=== PATIENT | female | born 1950 | race Caucasian/White ===

== ENCOUNTER 2018-02-05 13:29 | Outpatient (CLI) | payer BC ==
--- NOTE | 2018-02-05 14:09 | RAD ---
LEFT FOOT THREE VIEWS: History: Left foot pain. FINDINGS: Tarsals appear unremarkable. Metatarsals and phalanges unremarkable. MTP and IP joints unremarkable. IMPRESSION: Unremarkable left foot. POS: [facility]
== END 2018-02-05 13:30 | disposition home or self-care (01) ==
LOC: BICRAD 13:29
PROVIDERS: ATTEND Family Medicine
DX: M79.672 Pain in left foot (principal)

== ENCOUNTER 2019-02-05 13:14 | Outpatient (CLI) | payer MEDICARE, BC ==
--- NOTE | 2019-02-05 14:04 | RAD ---
EXAM: 3 views of the left foot HISTORY: Foot pain after hitting 11 days ago on a bed frame COMPARISON: 02/05/2018 FINDINGS: 3 views of the left foot shows no evidence of acute fracture or dislocation. No soft tissue swelling is seen. No degenerative changes are present. IMPRESSION: No evidence of acute osseous abnormality.
== END 2019-02-05 13:15 | disposition home or self-care (01) ==
LOC: BICRAD 13:14
PROVIDERS: ATTEND Family Medicine
DX: M79.672 Pain in left foot (principal)

== ENCOUNTER 2019-05-25 22:43 | Observation (INO) | payer MEDICARE, BC ==
[2019-05-26] MEDS ORDERED: Ondansetron PF 4 MG/2 ML Vial IVP PRN (01:10)
[2019-05-26] MEDS ORDERED: HYDROcodone/Acetaminophen 5/325 mg Tablet PO PRN ×2 (01:10)
[2019-05-26] MEDS ORDERED: Acetaminophen 325 MG TAB PO PRN (01:10)
[2019-05-26] MEDS ORDERED: Ondansetron ODT 4 MG TAB SL PRN (01:10)
[2019-05-26] MEDS ORDERED: Aspirin 325 MG TAB PO SCH (01:15)
[2019-05-26] MEDS ORDERED: Nitroglycerin 2% Ointment 1 INCH/1 GM Packet TOP SCH (01:15)
[2019-05-26] MEDS ORDERED: Nitroglycerin 0.4 MG TAB (25 Tab Bottle) PO PRN (01:23)
--- NOTE | 2019-05-26 01:23 | PDOC.FPRHP ---
- History of Present Illness Chief Complaint: chest pain History of Present Illness: Patient is a 69F with PMHx of HTN, HLD, Asthma that presents with chest pain. Patient reports that the chest pain has been intermittent throughout the last 3 days, and it occurs at rest. She states that the pain is sharp in character and radiates up to her jaw. She also endorses some nausea but denies vomiting and diarrhea. She denies and SOB. She has no SD hx. Patient has had a cardiac workup in the past: Dr. Ruiz is her fur pointer She reportedly had an abnormal stress test 1.5-2 years ago and then had a cardiac cath that showed stenosis but did not require any stenting. She also reportedly had carotid dopplers 10mo ago that she reports came back without abnormalities PCP: Vladislav ED Course: 1in nitro, 1 PO nitro, 324mg asa, 975mg tylenol, 25meq KCl - Allergies/Adverse Reactions Allergies Allergy/AdvReac Type Severity Reaction Status Date / Time No Known Allergies Allergy Verified 05/26/19 01:46 - Home Medications Medication Instructions Recorded Confirmed Type Ezetimibe 10 mg PO DAILY 05/26/19 05/26/19 History Fluticasone Propionate [Flonase 1 spray EA NARE BID 05/26/19 05/26/19 History Nasal [place]] Icosapent Ethyl [Vascepa] 2 cap PO BID-WM 05/26/19 05/26/19 History Lifitegrast [Xiidra] 1 drop EA EYE BID 05/26/19 05/26/19 History Valsartan/Hydrochlorothiazide 1 tab PO DAILY 05/26/19 05/26/19 History [Valsartan-Hctz 160-12.5 mg Tab] - History PMHx: HTN, HLD, Asthma PSHx: cholecystectomy, tubal ligation, tonsillectomy FHx: father had CHF, no SD hx Social: nonsmoker, no etoh use, no drug use - Review of Systems General: denies: fever/chills, weight/appetite/sleep changes Eyes: denies: eye pain, vision changes ENT: denies: nasal congestion, rhinorrhea Respiratory: denies: cough, shortness of breath Cardiovascular: reports: chest pain, edema Gastrointestinal: reports: nausea. denies: vomiting, diarrhea Genitourinary: denies: incontinence, dysuria Skin: denies: rashes, jaundice Musculoskeletal: denies: pain, stiffness Neurological: denies: numbness, syncope Psychological: denies: anxiety, depression - Vital signs BP: [136/67] HR: [78] RR: [17] Tmax: [97.8F] Pox: [98]% on [RA] Wt: [79.243kg ] - Physical Exam Constitutional: NAD, awake, alert and oriented, well developed HEENT: normocephalic and atraumatic, EOMI, MMM Neck: supple, FROM Chest: no-tender to palpation, no lesions Heart: RRR, normal S1/S2, other (chest somewhat ttp though does not mimick pain completely) Lungs: CTAB, no respiratory distress Abdomen: soft, non-tender Musculoskeletal: normal structure, normal tone, ROM grossly normal Neurological: no focal deficit, normal sensation Skin: no rash/lesions, good turgor Heme/Lymphatic: no unusual bruising or bleeding, no purpura Psychiatric: normal mood and affect, good judgment and insight FMR H&P: Results - Labs Result Diagrams: 05/26/19 02:33 05/26/19 02:33 - EKG Interpretation EKG: NSR, no ST segment elevation/depression FMR H&P: A/P - Problem List (1) Unstable angina Current Visit: Yes Status: Acute (2) HTN (hypertension) Current Visit: Yes Status: Acute Code(s): I10 - ESSENTIAL (PRIMARY) HYPERTENSION (3) HLD (hyperlipidemia) Current Visit: Yes Status: Acute Code(s): E78.5 - HYPERLIPIDEMIA, UNSPECIFIED (4) Asthma Current Visit: Yes Status: Acute Code(s): J45.909 - UNSPECIFIED ASTHMA, UNCOMPLICATED - Plan Patient is a 69F with PMHx of HTN, HLD, Asthma that is admitted for unstable angina #Unstable Angina -Patient had chest pain intermittently over last 3 days while at rest, concerning for UA -pain alleviated with nitro -EKG: no ST changes -initial trop neg, will trend -hx of abnormal stress -cath 1.5-2 yrs ago not requiring stents at that time -monitor over telemetry overnight -nitrostat prn for cp -NPO at midnight -FLP, TSH, A1C in am for risk stratification -cards consult in am, possible stress vs cath #HTN -continue home meds #HLD -continue home meds #Asthma -continue home meds DVT ppx: SCDs Diet: NPO Dispo: obs for cardiac workup; possible stress vs cath in am pending cards recs Code: Full PCP: Vladislav TROTTER H&P: Upper Level - Pertinent history 69 yo F here with complaint of L sided CP with associated nausea that radiates to her jaw. She has a hx significant for HTN and a previous abnormal stress. She was cathed about 18 months ago where a stenosis was identified, but not stented. Pain started about 3 days ago and has been intermittent. It is not associated with activity. PMHx HTN HLD CAD Surgical Hx Cholecystectomy Tubal ligation Social Hx No tobacco, etoh or drugs - Pertinent findings See internal medicine nurse practitioner note for full ROS, PE, vitals, and labs ROS General Denies chills and fever HEENT denies sore throat or ear pain CV Complains of CP. Denies diaphoresis or palpitations Resp Denies SOB or cough GI Complains of nausea. Denies abdominal pain denies dysuria and frequency Neuro denies weakness or numbness. PE General A&O x4 HEENT NCAT CV RRR, no murmur Resp CTA Abd soft, no distension Neuro no focal deficits Extremities no swelling, palpable cords, homans negative - Plan Date/Time: 05/26/19 0123 IArun DO, have evaluated this patient and agree with findings/plan as outlined by internal medicine nurse practitioner resident. Pertinent changes/additions are listed here. 1.Unstable angina -Admit to tele obs -Trend trop -Given hx of abnormal stress, will consult cardiology as she may need a repeat cath -Order lipid with am labs to risk stratify for need for statin 2.HTN -Restart home meds Diet NPO at midnight Code Full PPx SCD Dispo: pt is in good condition. Likely length of stay is 1-2 days
[2019-05-26 01:40] VITALS: BMI 33.0
[2019-05-26] MEDS ORDERED: Calcium Carbonate 500 MG ChewTAB PO PRN (02:04)
[2019-05-26 03:23] LABS: Anion Gap 12 mmol/L (10-20); BUN (Urea Nitrogen) 18 mg/dL (9.8-20.1); Calc. Creatinine Clearance 86 mL/min (70-130); Calcium 8.8 mg/dL (7.8-10.44); Carbon Dioxide 25 mmol/L (23-31); Cardiac Risk 3.7 (Less than 4.5); Chloride 105 mmol/L (98-107); Cholesterol 205 mg/dl (< 200 Desired); Estimated GFR-MDRD 75; Glucose 109 mg/dL (80-115); HDL Cholesterol 55 mg/dL (>60 Neg Risk); LDL Cholesterol, Calculated 133 mg/dL; Potassium 3.8 mmol/L (3.5-5.1); Sodium 138 mmol/L (136-145); Triglycerides 84 mg/dL (Less than 150); Troponin I Less than 0.010 ng/mL (< 0.028)
[2019-05-26 03:28] LABS: #Basophils 0.1 thou/uL (0.0-0.2); #Eosinphils 0.2 thou/uL (0.0-0.7); #Lymphocytes 2.1 thou/uL (1.20-3.40); #Monocytes 0.5 thou/uL (0.11-0.59); #Neutrophils 4.2 thou/uL (1.40-6.50); %Basophils 0.9 % (0.0-1.0); %Eosinophils 2.2 % (0.0-10.0); %Lymphocytes 29.5 % (21.0-51.0); %Monocytes 6.9 % (0.0-10.0); %Neutrophils 60.5 % (42.0-75.0); Hemoglobin 12.9 g/dL (12.0-16.0); Mean Corpuscular HGB CONC 32.9 g/dL (32.0-36.0); Mean Corpuscular Hemoglobin 31.5 pg (27.0-31.0); Mean Corpuscular Volume 95.8 fL (78.0-98.0); Mean Platelet Volume 8.1 fL (7.4-10.4); Platelet Count 213 thou/uL (130-400); RBC Distribution Width 11.8 % (11.5-14.5); Red Blood Cell (RBC) Count 4.08 mill/uL (4.20-5.40); White Blood Cell (WBC) Count 6.9 thou/uL (4.8-10.8)
[2019-05-26 03:42] LABS: Hemoglobin A1c 5.5 % (4.0-6.0)
[2019-05-26] MEDS ORDERED: ICOSAPENT ETHYL PO SCH (08:00)
[2019-05-26] MEDS ORDERED: Aspirin 325 mg Enteric Coated Tablet PO SCH (09:00)
[2019-05-26] MEDS ORDERED: Fluticasone Propionate Nasal Spray 16 gm Bottle NASAL SCH (09:00)
[2019-05-26] MEDS ORDERED: Valsartan 80 MG TAB PO SCH (09:00)
[2019-05-26] MEDS ORDERED: Ezetimibe 10 MG TAB PO SCH (09:00)
[2019-05-26] MEDS ORDERED: Hydrochlorothiazide 25 MG TAB PO SCH (09:00)
[2019-05-26] MEDS ORDERED: Regadenoson 0.4 MG/5 ML SYRINGE ONE (09:08)
[2019-05-26 11:28] VITALS: TEMP 97.6
[2019-05-26 14:37] VITALS: BP 119/59
--- NOTE | 2019-05-26 15:49 | HP ---
SUBJECTIVE: I have examined the patient and discussed the case with Dr. Gloria Davila. I agree with her assessment and plan. Ms. Ferguson is a 69-year-old female with a prior history of coronary artery disease treated medically, who presented with chest pain. She had a catheterization approximately 18 to 24 months ago that demonstrated coronary artery disease that did not require stenting or bypass. She had episodes of chest pain, has been admitted for further evaluation and workup. This morning, she is symptom free. OBJECTIVE: VITAL SIGNS: Blood pressure is 130/60, her heart rate is 78 and regular, respirations 18, she is afebrile. She is awake, alert, in no distress. EAR, NOSE, AND THROAT: No erythema or exudate noted. NECK: Supple without JVD or bruit. CARDIAC: Heart rhythm regular, S4 gallop. No murmur or rub noted. LUNGS: Clear. No rales or wheezes. No distress. ABDOMEN: Flat and soft without guarding, rebound, or rigidity. NEUROLOGIC: No focal deficits. LABORATORY DATA: CBC is normal. Chemistries are normal. ASSESSMENT: Coronary artery disease with possible angina. PLAN: We will consult Cardiology to consider catheterization since she had an abnormal stress test 18 months ago. Job ID: [id number]
--- NOTE | 2019-05-26 16:30 | NM ---
EXAM: NUCLEAR MEDICINE CARDIAC STRESS WITH EF AND WALL MOTION: 05/26/19 HISTORY: Chest pain. TECHNIQUE: Patient administered 9 millicuries of technetium 99m Sestamibi for rest imaging and 27.90 millicuries of technetium 99m Sestamibi for stress imaging. Cardiac gating is performed. FINDINGS: Homogeneous distribution of the radiotracer in the left ventricle. No reversibility. No fixed defect. TID - 0.92. End diastolic volume - 51 mL. End systolic volume - 2 mL. CARDIAC GATING: Normal wall motion and thickening. 96% ejection fraction. IMPRESSION: 1. No reversibility or fixed defects. 2. 96% ejection fraction. POS: [facility]
--- NOTE | 2019-05-28 10:14 | DIS ---
DATE OF ADMISSION: 05/25/2019 DATE OF DISCHARGE: 05/26/2019 RESIDENT: Clarisa Bedoya, PGY-2 ADMITTING ATTENDING: Justice Casey MD DISCHARGE ATTENDING: Justice Casey MD CONSULTS: Cardiology. PROCEDURES: Stress test, no reversible ischemia. PRIMARY DIAGNOSIS: Unstable angina, resolved. SECONDARY DIAGNOSES: 1. Hypertension. 2. Hyperlipidemia. 3. Asthma. DISCHARGE MEDICATIONS: 1. Zetia 10 mg daily. 2. Flonase 1 spray each naris b.i.d. 3. Vascepa 2 capsules b.i.d. 4. Xiidra one drop each eye b.i.d. 5. Valsartan hydrochlorothiazide 160/12.5 mg daily. DISCONTINUED MEDICATIONS: None. HISTORY OF PRESENT ILLNESS/HOSPITAL COURSE: Ms. Ferguson is a 69-year-old female with past medical history of hypertension, hyperlipidemia, and asthma, who presented with chest pain that radiated to the jaw, associated with some nausea. Denied shortness of breath. She sees Dr. Ruiz and reportedly had an abnormal stress test 1-2 years ago with a cardiac cath showing stenosis not requiring stenting. Reported carotid Doppler within the last 10 months. In the ED, she was given 1 inch of nitroglycerin, 1 p.o. of nitroglycerin, 324 mg of aspirin, 975 mg of Tylenol, and 25 mEq potassium chloride. Her vital signs were stable. Her EKG showed no ST-segment changes. Her troponins were negative x3. TSH normal. Fasting lipid panel with cholesterol 205, LDL 133. She underwent a stress test, which was normal. In regard to her hypertension and asthma, she was continued on home medications and these were stable throughout course of hospitalization. In regards to her hyperlipidemia, she is currently on Zetia, she cannot tolerate statins, she reports that each time has been on one, including pravastatin that she has developed muscle aches and pains. She has not tried 1-2 times weekly dosing of pravastatin. As her LDL is still elevated, I would consider this and it was discussed with the patient. DISPOSITION: Stable. DISCHARGE INSTRUCTIONS: 1. Location: Home. 2. Diet: Heart healthy. 3. Activity: No restrictions. 4. Follow up with Dr. Loomis within 5 days. Job ID: [id number]
== END 2019-05-26 17:54 | disposition home or self-care (01) ==
LOC: ERS 22:43 → 2SW 23:33
PROVIDERS: ADMIT Family Medicine; ATTEND Family Medicine
DX: I25.110 Atherosclerotic heart disease of native coronary artery with unstable angina pectoris (principal); I10 Essential (primary) hypertension; E78.5 Hyperlipidemia, unspecified; J45.909 Unspecified asthma, uncomplicated; Z79.899 Other long term (current) drug therapy
CPT/HCPCS: 78452; 80048; 80061; 83036; 84443; 84484 ×2; 85025; 93005; 93017; 94760; 99285; A9500; G0378 ×2; 36415; J2785

== ENCOUNTER 2022-08-13 09:11 | Outpatient (CLI) | payer MEDICARE, BC | END 2022-08-13 09:12 | disposition home or self-care (01) | LOC: RAD 09:11 | PROVIDERS: ATTEND Internal Medicine Critical Care Medicine | DX: R06.00 Dyspnea, unspecified (principal) | CPT/HCPCS: 71046 ==